=== PATIENT | female | born 1960 | race Asian ===

== ENCOUNTER 2017-07-28 06:56 | Day surgery (SDC) | payer OTHER ==
[2017-07-28] MEDS ORDERED: MIDAZOLAM 1 MG/ML 2 ML INJ ×3 (09:28→09:29)
[2017-07-28] MEDS ORDERED: FENTAnyl 50 MCG/ML VIAL (09:29)
== END 2017-07-28 12:20 | disposition home or self-care (01) ==
LOC: GIL 06:56
DX: Z12.11 Encounter for screening for malignant neoplasm of colon (principal)
CPT/HCPCS: 45330